=== PATIENT | male | born 1970 | race African-American/Black ===

== ENCOUNTER 2017-01-02 02:21 | Emergency (ER) | payer MEDICARE ==
[~2017-01-02] VITALS: Ht 193 cm; Wt 98.4 kg
[2017-01-02 05:37] LABS: ALBUMIN 4.1 g/dL (3.2-5.0); ALKALINE PHOSPHATASE 78 u/l (38-126); ANION GAP 15 (6-22 (CALC)); BILIRUBIN, TOTAL 1.2 mg/dL (0.0-1.4); BUN 11 mg/dL (9-20); BUN/CREATININE RATIO 14 (12-20 (CALC)); CALCIUM 8.8 mg/dL (8.4-10.2); CARBON DIOXIDE 24 mmol/l (22-30); CHLORIDE 107 mmol/l (95-108); CREATININE 0.8 mg/dL (0.7-1.3); GFR > 60 ML/MIN (>=60 (CALC)); GFR FOR AFR.AMER. > 60 ML/MIN (>=60 (CALC)); GLUCOSE 127 mg/dL (75-110); POTASSIUM 4.1 mmol/l (3.5-5.1); SGOT/AST 27 u/l (17-59); SGPT/ALT 44 u/l (21-72); SODIUM 142 mmol/l (137-146); TOTAL PROTEIN 7.7 g/dL (6.3-8.2)
[2017-01-02 05:38] LABS: HEMATOCRIT 40.9 % (39.0-50.0); HEMOGLOBIN 13.9 g/dl (14.0-18.0); IMMATURE GRANULOCYTES 0.8 % (0.0-1.0); MEAN CELL VOLUME 101.2 fL CALC (80.0-100.0); MEAN CORPUSCULAR HGB 34.4 pG CALC (26.0-32.0); NEUT# 9.83 thou/uL (1.82-7.42); RED BLOOD COUNT 4.04 mill/uL (4.70-6.10); RED CELL DISTRI WIDTH 11.6 % (11.5-15.5)
[2017-01-02 08:45] VITALS: BP 121/79
== END 2017-01-02 08:46 | disposition short-term general hospital (02) ==
LOC: ED 02:21
PROVIDERS: Emergency Medicine
DX: J36 Peritonsillar abscess (principal); R51 Headache; R59.0 Localized enlarged lymph nodes; R50.9 Fever, unspecified; F17.210 Nicotine dependence, cigarettes, uncomplicated; M79.1 Myalgia

== ENCOUNTER 2018-04-17 13:06 | Emergency (ER) | payer SELFPAY ==
[~2018-04-17] VITALS: Ht 193 cm; Wt 103.0 kg
[2018-04-17] MEDS ORDERED: BACTRIM DS1 TAB PO (14:37)
[2018-04-17] MEDS ORDERED: KEFLEX500 M1 PO (14:37)
[2018-04-17 14:43] VITALS: BP 118/83
== END 2018-04-17 14:52 | disposition home or self-care (01) | DRG 603 ==
LOC: ED 13:06
DX: L02.512 Cutaneous abscess of left hand (principal); F17.290 Nicotine dependence, other tobacco product, uncomplicated

== ENCOUNTER 2019-03-01 07:09 | Emergency (ER) | payer SELFPAY ==
[~2019-03-01] VITALS: Ht 193 cm; Wt 90.0 kg
[~2019-03-01 07:09] MED LIST: BACTRIM DS1 TAB PO; KEFLEX500 M1 PO
[2019-03-01] MEDS ORDERED: DOXYCYC MONO100 M2 PO (07:49)
[2019-03-01 08:00] VITALS: BP 123/88
== END 2019-03-01 08:18 | disposition home or self-care (01) | DRG 153 ==
LOC: ED 07:09
DX: J06.9 Acute upper respiratory infection, unspecified (principal); F17.200 Nicotine dependence, unspecified, uncomplicated